=== PATIENT | female | born 1955 | race Two or more races ===

== ENCOUNTER 2022-07-15 11:25 | Outpatient (CLI) | payer OTHER, BC | END 2022-07-15 11:27 | disposition home or self-care (01) | LOC: LAB 11:25 | DX: D64.9 Anemia, unspecified (principal); D68.9 Coagulation defect, unspecified; N39.0 Urinary tract infection, site not specified; B97.89 Other viral agents as the cause of diseases classified elsewhere; Z20.828 Contact with and (suspected) exposure to other viral communicable diseases; Z20.822 Contact with and (suspected) exposure to COVID-19 ==